=== PATIENT | female | born 1990 ===

== ENCOUNTER 2017-08-25 14:01 | Emergency (ER) | payer MEDICAID ==
[2017-08-25] MEDS ORDERED: Sodium Chloride 0.9% 1,000 ML IV STA (14:50)
--- NOTE | 2017-08-25 14:57 | ED PDOC ---
Arrival/HPI - General Chief Complaint: Female Genitourinary Time Seen by Provider: 08/25/17 14:49 Historian: Patient - History of Present Illness Narrative History of Present Illness (Text): 08/25/17 14:52 27yo present with vaginal bleeding x 2days. Notes bleeding is very light, but she noted a clot which she brought to ED with her. Notes she had a normal US recently. Denies abdominal pain, nausea, vomiting, diarrhea, dizziness, fever , any other complaint. Past Medical History - Provider Review Nursing Documentation Reviewed: Yes - Infectious Disease Hx of Infectious Diseases: None - Reproductive Menopause: No - Renal Hx Kidney Stones: Yes - Psychiatric Hx Substance Use: No - Anesthesia Hx Anesthesia: No Family/Social History - Physician Review Nursing Documentation Reviewed: Yes Family/Social History: Unknown Family HX Smoking Status: Former Smoker Hx Alcohol Use: No Hx Substance Use: No Allergies/Home Meds Allergies/Adverse Reactions: Allergies No Known Allergies Allergy (Verified 08/25/17 14:34) Home Medications: Home Meds Medication Instructions Recorded Confirmed No Known Home Med 08/25/17 08/25/17 Review of Systems - Physician Review All systems were reviewed & negative as marked: Yes - Review of Systems Constitutional: Normal Eyes: Normal ENT: Normal Respiratory: Normal Cardiovascular: Normal Gastrointestinal: Normal Genitourinary Female: Vaginal Bleeding. absent: Dysuria, Frequency, Hematuria Musculoskeletal: Normal Skin: Normal Neurological: Normal Endocrine: Normal Hemo/Lymphatic: Normal Psychiatric: Normal Physical Exam Vital Signs Reviewed: Yes Vital Signs Temp Pulse Resp BP Pulse Ox 08/25/17 17:00 75 18 114/75 98 08/25/17 16:54 79 18 112/75 98 08/25/17 14:30 98.7 F 88 20 110/70 99 Temperature: Afebrile Blood Pressure: Normal Pulse: Regular Respiratory Rate: Normal Appearance: Positive for: Well-Appearing, Non-Toxic, Comfortable Pain Distress: None Mental Status: Positive for: Alert and Oriented X 3 - Systems Exam Head: Present: Atraumatic, Normocephalic Pupils: Present: PERRL Extroacular Muscles: Present: EOMI Conjunctiva: Present: Normal Mouth: Present: Moist Mucous Membranes Neck: Present: Normal Range of Motion Respiratory/Chest: Present: Clear to Auscultation, Good Air Exchange. No: Respiratory Distress, Accessory Muscle Use Cardiovascular: Present: Regular Rate and Rhythm, Normal S1, S2. No: Murmurs Abdomen: Present: Normal Bowel Sounds. No: Tenderness, Distention, Peritoneal Signs Genitourinary/Pelvic Exam: Present: Cervical os Closed Back: Present: Normal Inspection Upper Extremity: Present: Normal Inspection. No: Cyanosis, Edema Lower Extremity: Present: Normal Inspection. No: Edema Neurological: Present: GCS=15, CN II-XII Intact, Speech Normal Skin: Present: Warm, Dry, Normal Color. No: Rashes Psychiatric: Present: Alert, Oriented x 3, Normal Insight, Normal Concentration Medical Decision Making ED Course and Treatment: 08/25/17 17:18 Pt in ED for stated history. She was hemodynamically stable and in no distress. Lab was reviewed with beta quant of [id number] Preliminary report from the [facility] - 10weeks 3days IU . [id number] Result was DW the pt. She was advised to f/u with her OB - Lab Interpretations Lab Results: 08/25/17 15:20 08/25/17 15:20 Lab Results 08/25/17 17:30: Urine Color Yellow, Urine Appearance Clear, Urine pH 7.0, Ur Specific [place] 1.015, Urine Protein Trace H, Urine Glucose (UA) Negative, Urine Ketones Negative, Urine Blood Large H, Urine Nitrate Negative, Urine Bilirubin Negative, Urine Urobilinogen 0.2, Ur Leukocyte Esterase Negative, Urine RBC 1 - 3, Urine WBC 0 - 2, Ur Epithelial Cells 3 - 4, Amorphous Sediment Moderate, Urine Bacteria Mod 08/25/17 15:20: Urine HCG, Qual Positive 08/25/17 15:20: Beta HCG, Quant [id number] H 08/25/17 15:20: Sodium 136, Potassium 3.9, Chloride 102, Carbon Dioxide 26, Anion Gap 12, BUN 10, Creatinine 0.4 L, Est GFR ( Amer) > 60, Est GFR ( Non-Af Amer) > 60, Random Glucose 77, Calcium 9.6, Total Bilirubin 0.3, AST 18, ALT 21, Alkaline Phosphatase 56, Total Protein 6.9, Albumin 3.9, Globulin 3.1, Albumin/Globulin Ratio 1.3 08/25/17 15:20: PT 10.0, INR 0.92 L, APTT 28.4 08/25/17 15:20: WBC 13.5 H, RBC 3.79, Hgb 11.1 L, Hct 32.6 L, MCV 86.0, MCH 29.3 , MCHC 34.0, RDW 13.5, Plt Count 230, MPV 10.7, Gran % 71.3 H, Lymph % (Auto) 19.5 L, Lea % (Auto) 6.7 H, Eos % (Auto) 2.3, Baso % (Auto) 0.2, Gran # 9.63 H , Lymph # 2.6, Lea # 0.9 H, Eos # 0.3, Baso # 0.03 - RAD Interpretation Radiology Orders: 08/25/17 14:50 OB TRANSVAGINAL [US] Stat - Medication Orders Current Medication Orders: Discontinued Medications Sodium Chloride (Sodium Chloride 0.9%) 1,000 mls @ 999 mls/hr IV .Q1H1M STA Stop: 08/25/17 15:50 Last Admin: 08/25/17 15:00 Dose: 999 mls/hr eMAR Start Stop Document 08/25/17 15:00 MS (Rec: 08/25/17 16:57 MS [id number]) Intravenous Solution Start Date 08/25/17 Start Time 15:00 End Date 08/25/17 Disposition/Present on Arrival - Present on Arrival Any Indicators Present on Arrival: No History of DVT/PE: No History of Uncontrolled Diabetes: No Urinary Catheter: No History of Decub. Ulcer: No History Surgical Site Infection Following: None - Disposition Have Diagnosis and Disposition been Completed?: Yes Diagnosis: , Threatened Disposition: HOME/ ROUTINE Disposition Time: 17:20 Patient Plan: Discharge Patient Problems: Current Active Problems Problem Status Onset Acute Threatened Acute Condition: STABLE Discharge Instructions (ExitCare): Threatened Miscarriage (ED) Additional Instructions: Follow up with your OB Return to ED for any new symptoms Referrals: PCP,NO [Primary Care Provider] - Follow up with primary Forms: [employer] (Greek)
[2017-08-25 15:28] LABS: BASO # 0.03 K/mm3 (0.0-2.0); BASO % 0.2 % (0.0-3.0); EOS # 0.3 (0.0-0.7); EOS % 2.3 % (1.5-5.0); GRAN # 9.63 (1.4-6.5); GRAN % 71.3 % (50.0-68.0); HEMATOCRIT 32.6 % (36.0-48.0); LYMPH # 2.6 (1.2-3.4); LYMPH % 19.5 % (22.0-35.0); MEAN CORPUSCULAR HEMOGLOBIN 29.3 pg (25.0-35.0); MEAN PLATELET VOLUME 10.7 fl (7.0-11.0); MONO # 0.9 (0.1-0.6); MONO % 6.7 % (1.0-6.0); RED CELL DISTRIBUTION WIDTH 13.5 % (11.5-14.5); WHITE BLOOD COUNT 13.5 10^3/ul (4.5-11.0)
[2017-08-25 15:39] LABS: ALB/GLOB RATIO 1.3 (1.1-1.8); ALKALINE PHOSPHATASE 56 U/L (38-126); ALT/SGPT 21 U/L (7-56); AST/SGOT 18 U/L (14-36); BILIRUBIN,TOTAL 0.3 mg/dL (0.2-1.3); BLOOD UREA NITROGEN 10 mg/dL (7-21); CALCIUM 9.6 mg/dL (8.4-10.5); CARBON DIOXIDE 26 mmol/L (21-33); CHLORIDE 102 mmol/L (98-107); GFR AFRICAN-AMERICAN > 60; GLUCOSE,RANDOM 77 mg/dL (70-110); POTASSIUM 3.9 mmol/L (3.6-5.0); SODIUM 136 mmol/L (132-148); TOTAL PROTEIN 6.9 g/dL (5.8-8.3)
[2017-08-25 15:52] LABS: INR 0.92 (0.93-1.08); PARTIAL THROMBOPLASTIN TIME 28.4 Seconds (25.1-36.5)
--- NOTE | 2017-08-25 17:56 | US ---
HISTORY: bleeding/: Last menstrual period is reported 06/12/2017 indicating estimated gestational age of 10 weeks 4 days. COMPARISON: None available. TECHNIQUE: Transvaginal ultrasound of was performed in sagittal and transverse projections. FINDINGS: UTERUS: Measures 11.5 x 6.6 x 6.7 cm. Uterus is enlarged by an intrauterine gestation with yolk sac and membrane and pole identified. No suspicious echo pattern to indicate decidual hemorrhage with a developing anterior fundal placenta appreciated. Cervical length measures 3.2 cm. No definite myometrial abnormality appreciated. Neither ovary is identified with no suspicious adnexal findings appreciated nevertheless. ENDOMETRIUM: A single viable intrauterine gestation is identified with mean sac diameter of 5.2 cm and mean crown-rump length measurement of 3.5 cm. Yolk sac measures 0.52 cm. Based on mean crown-rump length measurement, estimated gestational age is 10 weeks 3 days. Iliac origins greater wondered 70 beats per minute. FREE FLUID: No significant free fluid noted. OTHER FINDINGS: None. IMPRESSION: A single viable intrauterine gestation is identified within the endometrial cavity with average ultrasonic age of 10 weeks 3 days which agrees with menstrual dates of 10 weeks 4 days. No definite evidence to suggest decidual hemorrhage. Clinical correlation is advised. Cervical length measures 3.2 cm. Follow-up ultrasonography is advised.
[2017-08-25 18:07] LABS: URINE BILIRUBIN NEGATIVE (NEGATIVE); URINE BLOOD LARGE (NEGATIVE); URINE GLUCOSE (UA) NEGATIVE (NEGATIVE); URINE KETONE NEGATIVE (NEGATIVE); URINE LEUKOCYTE ESTERASE NEGATIVE Leu/uL (NEGATIVE); URINE PROTEIN TRACE mg/dL (<30 mg/dL); URINE UROBILINOGEN 0.2 E.U./dL (<1 E.U./dL)
[2017-08-25 18:09] LABS: URINE APPEARANCE CLEAR (CLEAR); URINE COLOR YELLOW (YELLOW)
[2017-08-25 18:10] LABS: URINE AMORPHOUS SEDIMENT MODERATE; URINE BACTERIA MOD (NEG); URINE WBC 0 - 2 /hpf (0-6)
[2017-08-25 18:24] VITALS: BP 128/88; PULSE 70; RESP 14; TEMP 98.1; O2SAT 99
== END 2017-08-25 18:23 | disposition home or self-care (01) ==
LOC: ED 14:01
DX: O20.0 Threatened abortion (principal); Z3A.10 10 weeks gestation of pregnancy; Z87.891 Personal history of nicotine dependence; Z87.442 Personal history of urinary calculi
CPT/HCPCS: 76817; 80053; 81001; 84702; 84703; 85025; 85610; 85730; 99283; J7040